=== PATIENT | male | born 1960 | race Hispanic/Latino ===

== ENCOUNTER 2018-07-30 20:38 | Emergency (ER) | payer BC, OTHER ==
[~2018-07-30 20:38] MED LIST: ALLO100T PO; FLUO20TA29 PO; GABA-531 PO; HYDR-3422 PO; LATA2.5D2 OP; MELO-108 PO; TOPI100T37 PO
[2018-07-30] MEDS ORDERED: SULFAMETHOX-TMP DS 800/160 TAB ONE (21:04)
== END 2018-07-30 21:17 | disposition home or self-care (01) ==
LOC: EDH 20:38
DX: L03.114 Cellulitis of left upper limb (principal); F43.10 Post-traumatic stress disorder, unspecified; Z88.0 Allergy status to penicillin

== ENCOUNTER 2018-11-13 03:59 | Emergency (ER) | payer OTHER ==
[2018-11-13] MEDS ORDERED: METOCLOPRAMIDE 10 MG/2 ML VIAL ONE (04:30)
[2018-11-13] MEDS ORDERED: ONDANSETRON HCL 4 MG/2 ML VIAL ONE (04:30)
[2018-11-13] MEDS ORDERED: FAMOTIDINE/PF 20 MG/2 ML VIAL IV ONE (04:30)
[2018-11-13] MEDS ORDERED: SODIUM CHLORIDE 0.9% 1000ML 1,000 ML IV ONE (04:46)
[2018-11-13 04:52] LABS: BASOPHILS % (AUTO) 0.2 % (0.0-5.0); EOSINOPHILS % (AUTO) 1.4 % (0.0-8.0); HEMATOCRIT 45.7 % (42-54); LYMPHOCYTES % (AUTO) 9.9 % (21.0-51.0); MEAN CORPUSCULAR HEMOGLOBIN 31.2 pg (27.0-33.0); MEAN CORPUSCULAR HGB CONC 34.7 g/dL (32.0-36.0); MEAN CORPUSCULAR VOLUME 90.1 fL (79-99); MONOCYTES % (AUTO) 7.2 % (3.0-13.0); NEUTROPHILS % (AUTO) 81.3 % (40.0-77.0); PLATELET COUNT (AUTO) 209 K/uL (130-400); RED BLOOD CELL COUNT(AUTO) 5.07 MIL/uL (4.50-6.20); RED CELL DISTRIBUTION WIDTH 12.9 % (11.0-15.5); WHITE BLOOD COUNT (AUTO) 6.9 K/uL (4.8-10.8)
[2018-11-13 05:03] LABS: CREATININE 1.3 mg/dL (0.5-1.5)
[2018-11-13 05:07] LABS: ALBUMIN 3.9 g/dL (3.5-5.0); BILIRUBIN,TOTAL 1.4 mg/dL (0.2-1.0); TOTAL PROTEIN, SERUM 7.2 g/dL (6.0-8.3)
[2018-11-13 05:24] LABS: APPEARANCE,URINE Clear (CLEAR); BILIRUBIN,URINE Negative (NEGATIVE); COLOR,URINE Yellow (YELLOW); GLUCOSE, URINE (UA) Negative (NEGATIVE); KETONES,URINE Negative (NEGATIVE); LEUKOCYTE ESTERASE ,URINE Negative (NEGATIVE); NITRATE,URINE Negative (NEGATIVE); OCCULT BLOOD,URINE Negative (NEGATIVE); PH,URINE 5.5 (5.0-8.0); PROTEIN,URINE Negative (NEGATIVE)
== END 2018-11-13 06:04 | disposition home or self-care (01) ==
LOC: EDH 03:59
DX: E86.9 Volume depletion, unspecified (principal); R19.7 Diarrhea, unspecified; I10 Essential (primary) hypertension; Z88.0 Allergy status to penicillin; Z98.890 Other specified postprocedural states
CPT/HCPCS: 36415; 80053; 81003; 83690; 85025; 96361; 96374; 96375; 99284; J2405; J2765; J3490; J7030

== ENCOUNTER 2019-04-01 12:30 | Emergency (ER) | payer OTHER ==
[2019-04-01] MEDS ORDERED: KETOROLAC TROMETHAMINE 60 MG/2 ML VIAL ONE (13:53)
[2019-04-01] MEDS ORDERED: DEXAMETHASONE SOD PHOSPHATE 10MG/ML 1ML VIAL ONE (13:53)
[2019-04-01] MEDS ORDERED: DIAZEPAM 5 MG TABLET ONE (13:53)
== END 2019-04-01 14:11 | disposition home or self-care (01) ==
LOC: EDH 12:30
DX: M54.5 Low back pain (principal); G89.29 Other chronic pain; M62.830 Muscle spasm of back; I10 Essential (primary) hypertension; F43.10 Post-traumatic stress disorder, unspecified; Z87.891 Personal history of nicotine dependence; Z88.0 Allergy status to penicillin
CPT/HCPCS: 96372 ×2; 99284; J1100; J1885

== ENCOUNTER 2019-04-29 16:58 | Emergency (ER) | payer OTHER ==
[2019-04-29] MEDS ORDERED: IPRATROPIUM/ALBUTEROL SULFATE 3 ML SOLUTION IH ONE (17:18)
[2019-04-29 17:29] LABS: BASOPHILS % (AUTO) 0.5 % (0.0-5.0); EOSINOPHILS % (AUTO) 2.1 % (0.0-8.0); HEMATOCRIT 44.9 % (42-54); LYMPHOCYTES % (AUTO) 33.7 % (21.0-51.0); MEAN CORPUSCULAR HEMOGLOBIN 31.8 pg (27.0-33.0); MEAN CORPUSCULAR HGB CONC 34.5 g/dL (32.0-36.0); MONOCYTES % (AUTO) 9.2 % (3.0-13.0); NEUTROPHILS % (AUTO) 54.5 % (40.0-77.0); PLATELET COUNT (AUTO) 229 K/uL (130-400); RED BLOOD CELL COUNT(AUTO) 4.88 MIL/uL (4.50-6.20); RED CELL DISTRIBUTION WIDTH 13.2 % (11.0-15.5); WHITE BLOOD COUNT (AUTO) 7.5 K/uL (4.8-10.8)
[2019-04-29 17:41] LABS: CREATININE 1.5 mg/dL (0.5-1.5); POTASSIUM 3.8 mmol/L (3.5-5.1)
[2019-04-29 17:54] LABS: ALBUMIN 3.8 g/dL (3.5-5.0); BILIRUBIN,TOTAL 0.4 mg/dL (0.2-1.0); TOTAL PROTEIN, SERUM 7.3 g/dL (6.0-8.3)
[2019-04-29 17:55] LABS: B-TYPE NATRIURETIC PEPTIDE 18 pg/mL (0-100)
[2019-04-29] MEDS ORDERED: SODIUM CHLORIDE 0.9% 1000ML 1,000 ML IV ONE (18:16)
== END 2019-04-29 19:28 | disposition home or self-care (01) ==
LOC: EDH 16:58
DX: J20.9 Acute bronchitis, unspecified (principal); I10 Essential (primary) hypertension; F43.10 Post-traumatic stress disorder, unspecified; R74.8 Abnormal levels of other serum enzymes; Z88.0 Allergy status to penicillin
CPT/HCPCS: 36415; 71045; 80053; 82550; 83880; 84484; 85025; 93005; 94640; 99285; J7030

== ENCOUNTER 2019-06-25 00:47 | Emergency (ER) | payer OTHER | END 2019-06-25 01:43 | disposition home or self-care (01) | LOC: EDH 00:47 | DX: I10 Essential (primary) hypertension (principal); H93.19 Tinnitus, unspecified ear; G47.30 Sleep apnea, unspecified; F43.10 Post-traumatic stress disorder, unspecified; Z98.890 Other specified postprocedural states; Z88.0 Allergy status to penicillin | CPT/HCPCS: 93005 ==

== ENCOUNTER 2019-07-18 14:41 | Emergency (ER) | payer OTHER | END 2019-07-18 16:31 | disposition home or self-care (01) | LOC: EDH 14:41 | DX: J00 Acute nasopharyngitis [common cold] (principal); I10 Essential (primary) hypertension; Z88.0 Allergy status to penicillin | CPT/HCPCS: 87804; 87880 ==

== ENCOUNTER 2019-10-18 08:01 | Emergency (ER) | payer OTHER ==
[2019-10-18 09:05] LABS: BASOPHILS % (AUTO) 0.3 % (0.0-5.0); EOSINOPHILS % (AUTO) 3.3 % (0.0-8.0); HEMATOCRIT 45.2 % (42-54); LYMPHOCYTES % (AUTO) 32.9 % (21.0-51.0); MEAN CORPUSCULAR HEMOGLOBIN 30.7 pg (27.0-33.0); MEAN CORPUSCULAR VOLUME 87.8 fL (79-99); MONOCYTES % (AUTO) 12.5 % (3.0-13.0); NEUTROPHILS % (AUTO) 50.4 % (40.0-77.0); PLATELET COUNT (AUTO) 220 K/uL (130-400); RED BLOOD CELL COUNT(AUTO) 5.15 MIL/uL (4.50-6.20); RED CELL DISTRIBUTION WIDTH 11.9 % (11.0-15.5); WHITE BLOOD COUNT (AUTO) 7.2 K/uL (4.8-10.8)
[2019-10-18 09:14] LABS: CREATININE 1.3 mg/dL (0.5-1.5); POTASSIUM 4.2 mmol/L (3.5-5.1)
[2019-10-18] MEDS ORDERED: METHYLPREDNISOLONE SOD SUCC 40MG/ML 1ML ONE (09:29)
[2019-10-18] MEDS ORDERED: MORPHINE SULFATE 4 MG/1ML SYG ONE (09:29)
== END 2019-10-18 10:09 | disposition home or self-care (01) ==
LOC: EDH 08:01
DX: M10.9 Gout, unspecified (principal); I10 Essential (primary) hypertension; Z90.49 Acquired absence of other specified parts of digestive tract
CPT/HCPCS: 36415; 80048; 84550; 85025; 96372 ×2; 99284; J2270; J2920

== ENCOUNTER 2020-02-18 | Emergency (ER) | payer OTHER, BC ==
[2020-02-18] MEDS ORDERED: CLONIDINE HCL 0.1 MG TABLET ONE (00:26)
[2020-02-18 00:44] LABS: CREATININE 1.3 mg/dL (0.5-1.5); POTASSIUM 3.4 mmol/L (3.5-5.1)
[2020-02-18 00:47] LABS: BASOPHILS % (AUTO) 0.5 % (0.0-5.0); EOSINOPHILS % (AUTO) 4.5 % (0.0-8.0); HEMATOCRIT 45.3 % (42-54); LYMPHOCYTES % (AUTO) 43.4 % (21.0-51.0); MEAN CORPUSCULAR HEMOGLOBIN 31.1 pg (27.0-33.0); MEAN CORPUSCULAR HGB CONC 35.3 g/dL (32.0-36.0); MONOCYTES % (AUTO) 9.1 % (3.0-13.0); NEUTROPHILS % (AUTO) 42.3 % (40.0-77.0); PLATELET COUNT (AUTO) 228 K/uL (130-400); RED BLOOD CELL COUNT(AUTO) 5.15 MIL/uL (4.50-6.20); RED CELL DISTRIBUTION WIDTH 11.7 % (11.0-15.5)
[2020-02-18 00:51] LABS: ALBUMIN 3.6 g/dL (3.5-5.0); BILIRUBIN,TOTAL 0.4 mg/dL (0.2-1.0); TOTAL PROTEIN, SERUM 7.2 g/dL (6.0-8.3)
== END 2020-02-18 01:49 | disposition home or self-care (01) ==
LOC: EDH
DX: I10 Essential (primary) hypertension (principal); R51 Headache; Z87.891 Personal history of nicotine dependence; Z88.0 Allergy status to penicillin
CPT/HCPCS: 36415; 70450; 80053; 85025

== ENCOUNTER 2021-07-02 21:42 | Emergency (ER) | payer BC, OTHER ==
[~2021-07-02] VITALS: Ht 152.4 cm; Wt 92.5 kg
[~2021-07-02 21:42] MED LIST changes: +LATA2.5D14 OP; -LATA2.5D2 OP
[2021-07-02] MEDS ORDERED: HYDROCODONE/ACETAMINOPHEN 10/325 MG TAB PO ONE (22:00)
[2021-07-02] MEDS ORDERED: CYCLOBENZAPRINE HCL 10 MG TABLET PO ONE (22:00)
[2021-07-02] MEDS ORDERED: ACET-2247 PO (22:39)
[2021-07-02] MEDS ORDERED: IBUP-1552 PO (22:39)
[2021-07-02 23:05] VITALS: BP 159/82
== END 2021-07-02 23:06 | disposition home or self-care (01) ==
LOC: EDH 21:42
DX: S82.831A Other fracture of upper and lower end of right fibula, initial encounter for closed fracture (principal); S23.41XA Sprain of ribs, initial encounter; S63.92XA Sprain of unspecified part of left wrist and hand, initial encounter; E78.5 Hyperlipidemia, unspecified; F43.10 Post-traumatic stress disorder, unspecified; E66.9 Obesity, unspecified; Z79.899 Other long term (current) drug therapy; Z79.1 Long term (current) use of non-steroidal anti-inflammatories (NSAID); Z88.0 Allergy status to penicillin; Z68.39 Body mass index [BMI] 39.0-39.9, adult; W01.0XXA Fall on same level from slipping, tripping and stumbling without subsequent striking against object, initial encounter; X58.XXXA Exposure to other specified factors, initial encounter; Y93.89 Activity, other specified; Y92.89 Other specified places as the place of occurrence of the external cause; Y99.8 Other external cause status
CPT/HCPCS: 29515; 71101; 73120; 73610

== ENCOUNTER 2021-10-20 13:45 | Emergency (ER) | payer BC, OTHER ==
[~2021-10-20] VITALS: Ht 165.1 cm; Wt 86.2 kg
[~2021-10-20 13:45] MED LIST changes: +ACET-2247 PO; +IBUP-1552 PO
[2021-10-20 14:19] LABS: BASOPHILS % (AUTO) 0.3 % (0.0-5.0); EOSINOPHILS % (AUTO) 3.1 % (0.0-8.0); HEMATOCRIT 45.3 % (42-54); MEAN CORPUSCULAR HEMOGLOBIN 31.6 pg (27.0-33.0); MEAN CORPUSCULAR HGB CONC 34.9 g/dL (32.0-36.0); MEAN CORPUSCULAR VOLUME 90.6 fL (79-99); MONOCYTES % (AUTO) 9.1 % (3.0-13.0); NEUTROPHILS % (AUTO) 52.2 % (40.0-77.0); PLATELET COUNT (AUTO) 237 K/uL (130-400); RED CELL DISTRIBUTION WIDTH 12.6 % (11.0-15.5); WHITE BLOOD COUNT (AUTO) 6.7 K/uL (4.8-10.8)
[2021-10-20 14:26] LABS: CREATININE 1.1 mg/dL (0.5-1.5); POTASSIUM 4.2 mmol/L (3.5-5.1)
[2021-10-20 14:28] LABS: INR 1.06 (0.85-1.15); PROTHROMBIN TIME 11.5 SEC (9.6-11.6)
[2021-10-20 14:29] LABS: PARTIAL THROMBOPLASTIN TIME 25.5 SEC (26.3-35.5)
[2021-10-20 15:00] VITALS: BP 146/76
[2021-10-20] MEDS ORDERED: SULF1TAB42 PO (15:10)
== END 2021-10-20 15:20 | disposition home or self-care (01) ==
LOC: EDH 13:45
DX: R22.41 Localized swelling, mass and lump, right lower limb (principal); I10 Essential (primary) hypertension; F43.10 Post-traumatic stress disorder, unspecified; E78.5 Hyperlipidemia, unspecified; Z88.0 Allergy status to penicillin; Z79.899 Other long term (current) drug therapy; Z98.890 Other specified postprocedural states
CPT/HCPCS: 36415; 80048; 85025; 85610; 85730; 93971

== ENCOUNTER 2022-05-25 03:57 | Emergency (ER) | payer OTHER, BC ==
[~2022-05-25] VITALS: Ht 165.1 cm; Wt 92.1 kg
[~2022-05-25 03:57] MED LIST changes: +SULF1TAB42 PO
[2022-05-25] MEDS ORDERED: HYDROCODONE/ACETAMINOPHEN 10/325 MG TAB PO STA (05:15)
[2022-05-25] MEDS ORDERED: KETOROLAC 60 MG VIAL (30MG/ML) IM ONE (05:30)
[2022-05-25 05:49] VITALS: BP 150/76
[2022-05-25] MEDS ORDERED: DICL35CA PO (06:43)
[2022-05-25] MEDS ORDERED: COLC0.6T73 PO (06:43)
== END 2022-05-25 06:54 | disposition home or self-care (01) ==
LOC: EDH 03:57
DX: M10.9 Gout, unspecified (principal); I10 Essential (primary) hypertension; F43.10 Post-traumatic stress disorder, unspecified; E78.5 Hyperlipidemia, unspecified; Z98.890 Other specified postprocedural states; Z88.0 Allergy status to penicillin; Z79.899 Other long term (current) drug therapy
CPT/HCPCS: 99283; 96372; J1885

== ENCOUNTER 2023-05-21 18:56 | Emergency (ER) | payer OTHER, BC ==
[~2023-05-21] VITALS: Ht 165.1 cm; Wt 94.8 kg
[~2023-05-21 18:56] MED LIST changes: +COLC0.6T73 PO; +DICL35CA PO
[2023-05-21 19:59] VITALS: RESP 16
[2023-05-21 21:55] LABS: BASOPHILS # (AUTO) 0.02 K/uL (0.00-0.20); BASOPHILS % (AUTO) 0.3 % (0.0-5.0); EOSINOPHILS # (AUTO) 0.11 K/uL (0.00-0.70); EOSINOPHILS % (AUTO) 1.7 % (0.0-8.0); HEMATOCRIT 45.9 % (42-54); IMMATURE GRANULOCYTE ABSOLUTE 0.02 K/uL (0-1); LYMPHOCYTES # (AUTO) 1.3 K/uL (1.0-4.8); LYMPHOCYTES % (AUTO) 19.8 % (21.0-51.0); MEAN CORPUSCULAR HEMOGLOBIN 31.1 pg (27.0-33.0); MEAN CORPUSCULAR HGB CONC 35.7 g/dL (32.0-36.0); MEAN CORPUSCULAR VOLUME 87.1 fL (79-99); MONOCYTES # (AUTO) 0.7 K/uL (0.1-1.0); MONOCYTES % (AUTO) 11.1 % (3.0-13.0); NEUTROPHILS # (AUTO) 4.2 K/uL (1.8-7.7); NEUTROPHILS % (AUTO) 66.8 % (40.0-77.0); PLATELET COUNT (AUTO) 203 K/uL (130-400); RED BLOOD CELL COUNT(AUTO) 5.27 MIL/uL (4.50-6.20); RED CELL DISTRIBUTION WIDTH 12.1 % (11.0-15.5); WHITE BLOOD COUNT (AUTO) 6.3 K/uL (4.8-10.8)
[2023-05-21] MEDS ORDERED: GUAIFENESIN-DM 200/20 MG 10 ML PO ONE (22:00)
[2023-05-21 22:04] LABS: CREATININE 1.3 mg/dL (0.5-1.5); POTASSIUM 3.9 mmol/L (3.5-5.1)
[2023-05-21 22:08] LABS: ALBUMIN 3.8 g/dL (3.5-5.0); BILIRUBIN,TOTAL 1.1 mg/dL (0.2-1.0); TOTAL PROTEIN, SERUM 7.8 g/dL (6.0-8.3)
[2023-05-21 22:25] LABS: B-TYPE NATRIURETIC PEPTIDE 24 pg/mL (0-100)
[2023-05-21 23:07] LABS: COVID19 (SARS ANTIGEN RAPID) PRESUMPTIVE NEGATIVE (NEGATIVE); INFLUENZA TYPE A Negative For Type A (NEGATIVE); INFLUENZA TYPE B Negative For Type B (NEGATIVE)
[2023-05-21] MEDS ORDERED: AZIT250T9 PO (23:28)
[2023-05-21] MEDS ORDERED: PSEU120T62 PO (23:28)
[2023-05-21] MEDS ORDERED: PHEN118L19 PO (23:28)
[2023-05-21] MEDS ORDERED: ACET-66 PO (23:28)
== END 2023-05-21 23:35 | disposition home or self-care (01) ==
LOC: EDH 18:56
DX: J01.90 Acute sinusitis, unspecified (principal); J20.9 Acute bronchitis, unspecified; I10 Essential (primary) hypertension; E11.9 Type 2 diabetes mellitus without complications; Z88.0 Allergy status to penicillin; Z20.822 Contact with and (suspected) exposure to COVID-19
CPT/HCPCS: 36415; 71045; 80053; 83880; 84484; 85025; 87426; 87804; 87880; 93005

== ENCOUNTER 2023-07-13 03:39 | Emergency (ER) | payer OTHER ==
[~2023-07-13] VITALS: Ht 160 cm; Wt 90.7 kg
[~2023-07-13 03:39] MED LIST changes: +ACET-66 PO; +AZIT250T9 PO; +PHEN118L19 PO; +PSEU120T62 PO
[2023-07-13 03:40] VITALS: BP 157/87; PULSE 82; RESP 18
== END 2023-07-13 03:46 | disposition left against medical advice (07) ==
LOC: EDH 03:39
DX: R03.0 Elevated blood-pressure reading, without diagnosis of hypertension (principal); Z53.21 Procedure and treatment not carried out due to patient leaving prior to being seen by health care provider
CPT/HCPCS: 99281

== ENCOUNTER 2023-11-21 08:10 | Emergency (ER) | payer OTHER, BC ==
[~2023-11-21] VITALS: Ht 165.1 cm; Wt 81.6 kg
[2023-11-21 08:40] VITALS: RESP 18
[2023-11-21 08:56] LABS: BASOPHILS # (AUTO) 0.02 K/uL (0.00-0.20); BASOPHILS % (AUTO) 0.2 % (0.0-5.0); EOSINOPHILS # (AUTO) 0.11 K/uL (0.00-0.70); EOSINOPHILS % (AUTO) 1.2 % (0.0-8.0); HEMATOCRIT 49.2 % (42-54); IMMATURE GRANULOCYTE ABSOLUTE 0.02 K/uL (0-1); LYMPHOCYTES # (AUTO) 2.2 K/uL (1.0-4.8); LYMPHOCYTES % (AUTO) 24.7 % (21.0-51.0); MEAN CORPUSCULAR HEMOGLOBIN 30.8 pg (27.0-33.0); MEAN CORPUSCULAR VOLUME 88.2 fL (79-99); MONOCYTES # (AUTO) 0.6 K/uL (0.1-1.0); MONOCYTES % (AUTO) 6.9 % (3.0-13.0); NEUTROPHILS % (AUTO) 66.8 % (40.0-77.0); PLATELET COUNT (AUTO) 268 K/uL (130-400); RED BLOOD CELL COUNT(AUTO) 5.58 MIL/uL (4.50-6.20); RED CELL DISTRIBUTION WIDTH 12.5 % (11.0-15.5)
[2023-11-21 09:06] LABS: CREATININE 1.3 mg/dL (0.5-1.3); POTASSIUM 4.2 mmol/L (3.5-5.1)
[2023-11-21 09:11] LABS: ALBUMIN 4.1 g/dL (3.5-5.0); BILIRUBIN,TOTAL 0.7 mg/dL (0.2-1.0); TOTAL PROTEIN, SERUM 7.9 g/dL (6.0-8.3)
[2023-11-21] MEDS: 0.9%NACL 1000ML 1,000 ML IV ONE (10:18)
[2023-11-21 11:01] VITALS: BP 123/65; PULSE 54
[2023-11-21] MEDS ORDERED: [UNRECOGNIZED DRUG - CODE] PO (12:48)
[2023-11-23 07:17] LABS: C DIFFICILE TOXIN A/B Not Detected (Not Detected); ENTEROAGGREGATIVE ECOLI Not Detected (Not Detected); GIARDIA LAMBLIA Not Detected (Not Detected); PLESIOMONAS SHIGELOIDES Not Detected (Not Detected); SAPOVIRUS Not Detected (Not Detected); SHIGELLA/ENTEROINVASIVE E COLI Not Detected (Not Detected); VIBRIO Not Detected (Not Detected); VIBRIO CHOLERAE Not Detected (Not Detected)
== END 2023-11-21 12:58 | disposition home or self-care (01) ==
LOC: EDH 08:10
DX: R19.7 Diarrhea, unspecified (principal); E86.0 Dehydration; I10 Essential (primary) hypertension; Z88.0 Allergy status to penicillin; Z98.890 Other specified postprocedural states
CPT/HCPCS: 99284; 96360; 82270; 80053; 83690; 85025; 87046; 87177; 36415; 74018; 87507; 83630; 87324; J7030

== ENCOUNTER 2024-11-15 04:24 | Emergency (ER) | payer OTHER ==
[~2024-11-15] VITALS: Ht 165.1 cm; Wt 86.2 kg
[~2024-11-15 04:24] MED LIST changes: +TOPI-258 PO; -TOPI100T37 PO; +[UNRECOGNIZED DRUG - CODE] PO
[2024-11-15] MEDS: LACTATED RINGERS 1000ML 1,000 ML IV ONE (04:49)
[2024-11-15] MEDS: acetaMINOPHEN 325 MG TAB PO ONE (04:49)
--- NOTE | 2024-11-15 05:03 | ERN ---
General Chief Complaint: Diarrhea Stated Complaint: DIARRHEA Time Seen by MD: 05:00 Source: patient History of Present Illness Initial Comments 64-year-old male past medical history hypertension has had unrelenting diarrhea for the last 36 hours. No fevers or chills no nausea or vomiting no abdominal pain. Patient states he had a similar episode several months ago and stool c ulture was performed but he can not remember the results. Allergies: Coded Allergies: Penicillins (Unverified Allergy, Intermediate, HIVES, 03/30/17) Home Meds Active Scripts Psyllium Husk (with Sugar) (Metamucil Powder) 3 Gram/7 Gram Powder, 3.4 GM PO TID PRN for DIARRHEA, #30 APPL 0 Refills Prov:FIONA MARCUS MD 11/21/23 Phenylephrine/Diphenhydramine (Dimetapp Cold & Congest Liquid) 2.5 Mg-6.25 Mg/5 Ml Liquid, 10 ML PO TID for 5 Days, #120 ML Prov:YAAKOV STYLES 05/21/23 Azithromycin (Azithromycin) 250 Mg Tablet, 250 MG PO DAILY for ZPACK for 5 Days, #6 TAB Prov:YAAKOV STYLES 05/21/23 Pseudoephedrine HCl (Sudafed 12 Hour) 120 Mg Tablet.er, 120 MG PO BID for 5 Days, #10 TAB Prov:YAAKOV STYLES 05/21/23 Acetaminophen (Acetaminophen) 500 Mg Tablet, 500 MG PO Q4PRN for 5 Days, #15 TAB Prov:YAAKOV STYLES 05/21/23 Diclofenac Submicronized (Zorvolex) 35 Mg Capsule, 35 MG PO TID for 10 Days, #30 CAP Prov:IRAIDA SORIA MD 05/25/22 Colchicine (Colchicine) 0.6 Mg Tablet, 0.6 MG PO BID, #15 TAB Prov:IRAIDA SORIA MD 05/25/22 Sulfamethoxazole/Trimethoprim (Bactrim Ds Tablet) 1 Each Tablet, 1 TAB PO BID for 7 Days, #14 TAB 0 Refills Prov:ARDEN CARPENTER MD 10/20/21 Acetaminophen (Tylenol) 325 Mg Tablet, 650 MG PO Q4HPRN, #50 TAB Prov:SULTANA GLOVER 07/02/21 Ibuprofen (Ibu) 400 Mg Tablet, 800 MG PO TIDAC, #60 TAB Prov:GLOVERMIMI JimenezLupe ROY 07/02/21 Reported Medications Fluoxetine HCl (Fluoxetine HCl) 20 Mg Tablet, 20 MG PO UNKNOWN, TAB 03/30/17 Gabapentin (Gabapentin) 300 Mg Capsule, 300 MG PO UNKNOWN, CAP 03/30/17 Hydroxyzine HCl (Hydroxyzine HCl) 50 Mg Tablet, 50 MG PO UNKNOWN, TAB 03/30/17 Meloxicam (Meloxicam) 15 Mg Tablet, 15 MG PO UNKNOWN, TAB 03/30/17 Topiramate (Topiramate) 100 Mg Tablet, 100 MG PO UNKNOWN, TAB 03/30/17 Latanoprost (Latanoprost) 2.5 Ml Drops, 2.5 ML OP UNKNOWN, DROP 03/30/17 Allopurinol (Allopurinol) 100 Mg Tablet, 100 MG PO UNKNOWN, TAB 03/30/17 Past Medical History Past Medical History: Hypertension Medical History Other: PTSD; SLEEP APNEA Past Surgical History: Other Surgical History Other: HERNIA REPAIR Social History Social History: Other Constitutional: (-) chills, (-) diaphoresis, (-) fever, (-) malaise, (-) weakness, (-) other documentation EENTM: (-) eye pain, (-) blurred vision, (-) tearing, (-) double vision, (-) ear pain, (-) ear discharge, (-) nose pain, (-) nose congestion, (-) throat pain, (-) Throat swelling, (-) mouth pain, (-) tooth pain, (-) mouth swelling, (-) other documentation Respiratory: (-) cough, (-) orthopnea, (-) short of breath, (-) stridor, (-) wheezing, (-) other documentation Cardiovascular: (-) chest pain, (-) edema, (-) palpitations, (-) syncope, (-) dyspnea on exertion, (-) other documentation Gastrointestinal/Abdominal: (+) diarrhea Musculoskeletal: (-) Neck pain, (-) back pain, (-) Flank Pain, (-) joint pain, (-) joint swelling, (-) muscle pain, (-) muscle stiffness, (-) gout, (-) other documentation Neuro: (-) altered mental status, (-) headache, (-) syncope, (-) paralysis, (-) numbness, (-) seizure, (-) pre-existing deficit, (-) tremors, (-) weakness, (-) dizziness, (-) slurred speech, (-) vertigo, (-) other documentation Physical Exam General Appearance: (+) no apparent distress Orientation: (+) alert, (+) oriented x 3 Head/Face Trauma: No Eye: bilateral eye normal inspection, bilateral eye PERRL, bilateral eye EOMI Ear, Nose, Throat: (+) hearing grossly normal, (+) normal ENT inspection, (+) moist mucous membraine Neck: (+) normal inspection, (+) supple, (+) full range of motion Respiratory: (+) chest non-tender, (+) lungs clear, (+) well ventilated Heart: (+) regular, (+) no gallop, (+) murmur Vascular: (+) no edema, (+) normal peripheral pulse, (+) no JVD Gastrointestinal: (+) soft, (+) non-tender, (+) no organomegaly, (+) bowel sound present Results Laboratory and Microbiology Lab and Micro Result Laboratory Tests Test 11/15/24 05:00 11/15/24 06:36 White Blood Count 5.1 K/uL (4.8-10.8) Red Blood Count 4.99 MIL/uL (4.50-6.20) Hemoglobin 15.3 g/dL (14.0-18.0) Hematocrit 44.4 % (42-54) Mean Corpuscular Volume 89.0 fL (79-99) Mean Corpuscular Hemoglobin 30.7 pg (27.0-33.0) Mean Corpuscular Hemoglobin Concent 34.5 g/dL (32.0-36.0) Red Cell Distribution Width 12.4 % (11.0-15.5) Platelet Count 184 K/uL (130-400) Mean Platelet Volume 9.6 fL (7.5-10.5) Immature Granulocyte % (Auto) 0.6 % (0-1) Neutrophils (%) (Auto) 64.4 % (40.0-77.0) Lymphocytes (%) (Auto) 17.0 % (21.0-51.0) L Monocytes (%) (Auto) 14.8 % (3.0-13.0) H Eosinophils (%) (Auto) 2.8 % (0.0-8.0) Basophils (%) (Auto) 0.4 % (0.0-5.0) Neutrophils # (Auto) 3.3 K/uL (1.8-7.7) Lymphocytes # (Auto) 0.9 K/uL (1.0-4.8) L Monocytes # (Auto) 0.8 K/uL (0.1-1.0) Eosinophils # (Auto) 0.14 K/uL (0.00-0.70) Basophils # (Auto) 0.02 K/uL (0.00-0.20) Absolute Immature Granulocyte (auto 0.03 K/uL (0-1) Nucleated Red Blood Cells 0.0 % (0.0-0.19) Urine Color YELLOW (YELLOW) Urine Appearance CLEAR (CLEAR) Urine pH 5.5 (5.0-8.0) Urine Specific [place] 1.025 (1.001-1.031) Urine Protein 20 mg/dL (NEGATIVE) H Urine Glucose (UA) NEGATIVE mg/dL (NEGATIVE) Urine Ketones NEGATIVE mg/dL (NEGATIVE) Urine Occult Blood NEGATIVE (NEGATIVE) Urine Nitrate NEGATIVE (NEGATIVE) Urine Bilirubin NEGATIVE mg/dL (NEGATIVE) Urine Urobilinogen 0.2 mg/dL (0.2-1.0) Urine Leukocyte Esterase NEGATIVE [place]/uL Urine RBC 0-1 /HPF (0-1) Urine WBC 0-1 /HPF (0-1) Urine Bacteria None /HPF (None Seen) Sodium Level 133 mmol/L (136-145) L Potassium Level 3.7 mmol/L (3.5-5.1) Chloride Level 103 mmol/L (101-111) Carbon Dioxide Level 22 mmol/L (21-32) Blood Urea Nitrogen 21 mg/dL (7-18) H Creatinine 1.3 mg/dL (0.5-1.3) Glomerular Filtration Rate Calc 62 mL/min (>90) Random Glucose 98 mg/dL (70-105) Total Calcium 8.4 mg/dL (8.5-10.1) L Total Bilirubin 0.7 mg/dL (0.2-1.0) Direct Bilirubin 0.2 mg/dL (0.0-0.3) Aspartate Amino Transf (AST/SGOT) 50 U/L (10-37) H Alanine Aminotransferase (ALT/SGPT) 57 U/L (12-78) Alkaline Phosphatase 75 U/L (50-136) Total Protein 7.1 g/dL (6.0-8.3) Albumin 3.5 g/dL (3.5-5.0) C. difficile Antigen and Toxins A,B See comments (NEG) Labs Reviewed?: Yes MDM Unremitting diarrhea. Unclear if it is of food allergy or food poisoning or gastroenteritis. We will start to give the patient some fluid draw the usual labs to be sure there was no electrolyte abnormalities. MDM: DIFFERENTIAL DIAGNOSIS: DIARRHEA, GASTROENTERITIS, RATIONALE: TESTS CONSIDERED AND ORDERED SECONDARY TO SHARED DECISION MAKING INCLUDE: PREVIOUS OUTSIDE RECORDS REVIEWED: OLD ER VISITS. RISK OF COMPLICATION AND/OR MORBIDITY OR MORTALITY OF PATIENT MANAGEMENT: NONE MEDICATIONS-PER MEDICATION RECONCILIATION PATIENT IS A 64-YEAR-OLD MALE COMING IN TO BE EVALUATED FOR DIARRHEA. PATIENT WAS HAS HAD DIARRHEA FOR A COUPLE OF DAYS. PATIENT DOES NOT KNOW WHAT CAUSED IT AND STATES HE WAS HE WAS EVALUATION LABORATORY WORKUP WITH A NORMAL LIMITS UPON EVALUATION PATIENT WAS ASLEEP AND STRETCHER DISTRESS VITAL SIGNS WITH A NORMAL LIMITS. PATIENT WILL BE DISCHARGED IN STABLE CONDITION WITH A DIAGNOSIS OF VIRAL GASTROENTERITIS. SYMPTOMATIC MEDICATION WILL BE PROVIDED. ED Course Orders Procedure Category Date Status Time Vital Signs Per CPOE 11/15/24 Transmitted Routine 04:39 Saline Lock Iv CPOE 11/15/24 Transmitted 04:39 Cbc With Differential LAB 11/15/24 Complete 04:39 Urinalysis Profile LAB 11/15/24 Complete 04:39 Basic Metabolic Panel LAB 11/15/24 Complete 04:39 Lactated Ringers PHA 11/15/24 Complete 1000ml (Lactated 05:00 Acetaminophen 325 Tab PHA 11/15/24 Complete (Tylenol 325mg Tab 05:00 Hepatic Function Panel LAB 11/15/24 Complete 05:07 Dicyclomine Hcl PHA 11/15/24 Complete (Bentyl 10mg/5ml 05:30 Ova And Parasite BRITTANIE 11/15/24 In Process 06:22 C Difficile A/B LAB 11/15/24 Complete 06:22 Stool Culture BRITTANIE 11/15/24 In Process 06:22 Current Medications Medications (Trade) Dose Ordered Sig/Bijal Route PRN Reason Start Time Stop Time Status Last Admin Dose Admin Acetaminophen (TYLenol 325MG TAB) 650 mg ONCE ONCE PO 11/15/24 05:00 11/15/24 05:01 DC 11/15/24 04:49 Dicyclomine HCl (Bentyl 10mg/5ml Syrup) 10 mg ONCE ONCE PO 11/15/24 05:30 11/15/24 05:31 DC 11/15/24 06:09 Lactated Ringer's 1,000 ml @ 0 mls/hr Q0M ONCE IV 11/15/24 05:00 11/15/24 05:01 DC 11/15/24 04:49 Vital Signs Date Time Temp Pulse Resp B/P (MAP) Pulse Ox O2 Delivery O2 Flow Rate FiO2 11/15/24 07:30 99.1 72 18 112/60 96 Room Air* 0 21 11/15/24 06:15 100.0 80 18 127/74 96 Room Air* 0 21 11/15/24 05:46 72 18 141/84 96 Room Air* 0 21 11/15/24 05:11 100.4 81 18 141/84 96 Room Air* 0 21 11/15/24 04:49 100.8 11/15/24 04:25 100.6 98 20 169/92 97 Room Air DX & DISP Disposition: Discharge Departure Impression: Primary Impression: Dehydration Additional Impression: Viral gastroenteritis Condition: Stable Scripts Lactobacillus Acidophilus (Acidophilus Probiotic) 500 Million Cell Capsule 1 CAP PO BID for 10 Days, #20 CAP 0 Refills Prov: JEANNA ROWLAND MD 11/15/24 Pantoprazole Sodium (Protonix) 40 Mg Ectab 1 TAB PO DAILY for 30 Days, #30 TAB 0 Refills Prov: JEANNA ROWLAND MD 11/15/24 Additional Instructions: FOLLOW-UP WITH PRIMARY CARE PROVIDER IN 1 TO 2 DAYS. TAKE MEDICATIONS DIRECTED HERE IN THE EMERGENCY ROOM. OKAY TO CONTINUE HOME MEDICATIONS UNLESS OTHERWISE DISCUSSED DURING YOUR VISIT IN THE EMERGENCY ROOM TODAY. RETURN TO YOUR NEAREST EMERGENCY ROOM IF SYMPTOMS WORSEN OR IF THERE IS NO IMPROVEMENT. CALL 911 IF YOU NEED IMMEDIATE ASSISTANCE. TAKE TYLENOL [id number] NEEDED AND IF NO CONTRAINDICATIONS ARE PRESENT. INCREASE ORAL HYDRATION. A WOUND CULTURE OR URINE CULTURE WAS ORDERED HERE IN THE EMERGENCY ROOM DEPARTMENT PLEASE FOLLOW-UP WITH PRIMARY CARE PROVIDER AND ADVISE THEM TO GET REPEAT PORTS FROM OUR FACILITY. IF YOU HAD ANY JADON WRAP/SPLINTS THAT WERE APPLIED HERE, PLEASE DO NOT REMOVE THEM UNTIL YOU SEE YOUR PRIMARY CARE OR SPECIALTY. REFERRALS: Referrals: DEE MARQUEZ MD (PCP) Time of Disposition: 08:15 DELMA DAY MD November 15, 2024 05:03 JEANNA ROWLAND MD November 15, 2024 08:16
[2024-11-15 05:09] LABS: BASOPHILS # (AUTO) 0.02 K/uL (0.00-0.20); BASOPHILS % (AUTO) 0.4 % (0.0-5.0); EOSINOPHILS # (AUTO) 0.14 K/uL (0.00-0.70); EOSINOPHILS % (AUTO) 2.8 % (0.0-8.0); HEMATOCRIT 44.4 % (42-54); IMMATURE GRANULOCYTE ABSOLUTE 0.03 K/uL (0-1); LYMPHOCYTES # (AUTO) 0.9 K/uL (1.0-4.8); MEAN CORPUSCULAR HEMOGLOBIN 30.7 pg (27.0-33.0); MEAN CORPUSCULAR HGB CONC 34.5 g/dL (32.0-36.0); MONOCYTES # (AUTO) 0.8 K/uL (0.1-1.0); MONOCYTES % (AUTO) 14.8 % (3.0-13.0); NEUTROPHILS # (AUTO) 3.3 K/uL (1.8-7.7); NEUTROPHILS % (AUTO) 64.4 % (40.0-77.0); PLATELET COUNT (AUTO) 184 K/uL (130-400); RED BLOOD CELL COUNT(AUTO) 4.99 MIL/uL (4.50-6.20); RED CELL DISTRIBUTION WIDTH 12.4 % (11.0-15.5); WHITE BLOOD COUNT (AUTO) 5.1 K/uL (4.8-10.8)
[2024-11-15 05:17] LABS: APPEARANCE,URINE CLEAR (CLEAR); BILIRUBIN,URINE NEGATIVE (NEGATIVE); COLOR,URINE YELLOW (YELLOW); GLUCOSE, URINE (UA) NEGATIVE (NEGATIVE); KETONES,URINE NEGATIVE (NEGATIVE); LEUKOCYTE ESTERASE ,URINE NEGATIVE Leu/uL (NEGATIVE); NITRATE,URINE NEGATIVE (NEGATIVE); OCCULT BLOOD,URINE NEGATIVE (NEGATIVE); PH,URINE 5.5 (5.0-8.0); PROTEIN,URINE 20 mg/dL (NEGATIVE); UROBILINOGEN,URINE 0.2 mg/dL (0.2-1.0)
[2024-11-15 05:20] LABS: ADD UA MICROSCOPIC YES; CREATININE 1.3 mg/dL (0.5-1.3); POTASSIUM 3.7 mmol/L (3.5-5.1)
[2024-11-15 05:21] LABS: MUCUS,URINE RARE LPF (None Seen); RBC,URINE 0-1 /HPF (0-1); WBC,URINE 0-1 /HPF (0-1)
[2024-11-15 05:48] LABS: ALBUMIN 3.5 g/dL (3.5-5.0); BILIRUBIN,DIRECT 0.2 mg/dL (0.0-0.3); BILIRUBIN,TOTAL 0.7 mg/dL (0.2-1.0); TOTAL PROTEIN, SERUM 7.1 g/dL (6.0-8.3)
[2024-11-15] MEDS: DICYCLOMINE HCL 10 MG/5 ML ML PO ONE (06:09)
[2024-11-15 06:16] VITALS: TEMP 100.2
--- NOTE | 2024-11-15 06:41 | NUR ---
STOOL SAMPLE SENT TO LAB.
[2024-11-15] MEDS ORDERED: LACT-356 PO (08:16)
[2024-11-15] MEDS ORDERED: PANT40TA55 PO (08:16)
[2024-11-15 09:10] VITALS: BP 126/87; PULSE 61; RESP 18; TEMP 99.1; O2SAT 97
== END 2024-11-15 09:12 | disposition home or self-care (01) ==
LOC: EDH 04:24
DX: A08.4 Viral intestinal infection, unspecified (principal); E86.0 Dehydration; F43.10 Post-traumatic stress disorder, unspecified; I10 Essential (primary) hypertension; Z79.899 Other long term (current) drug therapy; Z88.0 Allergy status to penicillin; Z98.890 Other specified postprocedural states; Z20.822 Contact with and (suspected) exposure to COVID-19
CPT/HCPCS: 99285; 96360; 80076; 80048; 85025; 87046; 87177; 87324; 81001; 36415; J7120

== ENCOUNTER 2025-06-09 05:03 | Emergency (ER) | payer OTHER, MEDICARE ==
[~2025-06-09] VITALS: Ht 165.1 cm; Wt 92.5 kg
[~2025-06-09 05:03] MED LIST changes: -COLC0.6T73 PO; +COLC0.6T79 PO; +LACT-356 PO; -LATA2.5D14 OP; +LATA2.5D7 OP; +PANT40TA55 PO
--- NOTE | 2025-06-09 05:22 | ERN ---
ED Note History of Present Illness Stated Complaint: C/O PAIN TO RIGHT KNEE Chief Complaint: Knee Injury/Swelling Time Seen by MD: 05:07 Dictation: This is a 65-year-old male presented to the emergency room with complaints of right knee pain and swelling which has been going on for many years. Apparently he was evaluated at the [facility] and told he might have gout. He denies any fever chills or rigors. No history of any injury. He is able to ambulate nonetheless with a pain Temperature 96.7 pulse 63 respirations 20 blood pressure 135/77 with a pulse oximetry of 99% on room air Patient has chronic medical problems include diabetes mellitus, hypertension, obstructive sleep apnea syndrome and PTSD Allergies: Coded Allergies: Penicillins (Unverified Allergy, Intermediate, HIVES, 03/30/17) Home Meds Active Scripts Colchicine (Colchicine) 0.6 Mg Capsule, 1 CAP PO BID for 30 Days, #60 CAP 0 Refills Prov:ÁLVARO POLANCO MD 06/09/25 Lactobacillus Acidophilus (Acidophilus Probiotic) 500 Million Cell Capsule, 1 CAP PO BID for 10 Days, #20 CAP 0 Refills Prov:JEANNA ROWLAND MD 11/15/24 Pantoprazole Sodium (Protonix) 40 Mg Ectab, 1 TAB PO DAILY for 30 Days, #30 TAB 0 Refills Prov:JEANNA ROWLAND MD 11/15/24 Psyllium Husk (with Sugar) (Metamucil Powder) 3 Gram/7 Gram Powder, 3.4 GM PO TID PRN for DIARRHEA, #30 APPL 0 Refills Prov:FIONA MARCUS MD 11/21/23 Phenylephrine/Diphenhydramine (Dimetapp Cold & Congest Liquid) 2.5 Mg-6.25 Mg/5 Ml Liquid, 10 ML PO TID for 5 Days, #120 ML Prov:YAAKOV STYLES 05/21/23 Azithromycin (Azithromycin) 250 Mg Tablet, 250 MG PO DAILY for ZPACK for 5 Days, #6 TAB Prov:YAAKOV STYLES 05/21/23 Pseudoephedrine HCl (Sudafed 12 Hour) 120 Mg Tablet.er, 120 MG PO BID for 5 Days, #10 TAB Prov:YAAKOV STYLES 05/21/23 Acetaminophen (Acetaminophen) 500 Mg Tablet, 500 MG PO Q4PRN for 5 Days, #15 TAB Prov:YAAKOV STYLES 05/21/23 Diclofenac Submicronized (Zorvolex) 35 Mg Capsule, 35 MG PO TID for 10 Days, #30 CAP Prov:IRAIDA SORIA MD 05/25/22 Colchicine (Colchicine) 0.6 Mg Tablet, 0.6 MG PO BID, #15 TAB Prov:IRAIDA SORIA MD 05/25/22 Sulfamethoxazole/Trimethoprim (Bactrim Ds Tablet) 1 Each Tablet, 1 TAB PO BID for 7 Days, #14 TAB 0 Refills Prov:ARDEN CARPENTER MD 10/20/21 Acetaminophen (Tylenol) 325 Mg Tablet, 650 MG PO Q4HPRN, #50 TAB Prov:SULTANA GLOVER 07/02/21 Ibuprofen (Ibu) 400 Mg Tablet, 800 MG PO TIDAC, #60 TAB Prov:SULTANA GLOVER 07/02/21 Reported Medications Fluoxetine HCl (Fluoxetine HCl) 20 Mg Tablet, 20 MG PO UNKNOWN, TAB 03/30/17 Gabapentin (Gabapentin) 300 Mg Capsule, 300 MG PO UNKNOWN, CAP 03/30/17 Hydroxyzine HCl (Hydroxyzine HCl) 50 Mg Tablet, 50 MG PO UNKNOWN, TAB 03/30/17 Meloxicam (Meloxicam) 15 Mg Tablet, 15 MG PO UNKNOWN, TAB 03/30/17 Topiramate (Topiramate) 100 Mg Tablet, 100 MG PO UNKNOWN, TAB 03/30/17 Latanoprost (Latanoprost) 2.5 Ml Drops, 2.5 ML OP UNKNOWN, DROP 03/30/17 Allopurinol (Allopurinol) 100 Mg Tablet, 100 MG PO UNKNOWN, TAB 03/30/17 Past Medical History Past Medical History: Diabetes-Type II, Hypertension, Other Additional Past Medical Hx: SLEEP APNEA, PTSD Surgical History: None Surgical History Other: HERNIA REPAIR Family History: Negative Social History: Other RN Note Reviewed/Agreed w/PFSH: Yes Review of System Dictation Constitutional: Negative for fever,chills, and weight loss Eyes: Negative for injury, pain,redness, and discharge ENT: Negative for injury,pain or swelling Cardiovascular: Negative for chest pain, palpitations, and edema Respiratory: Negative for shortness of breath, cough, and wheezing, Abdomen/GI: Negative for abdominal pain, nausea, vomiting, diarrhea, and constipation Back: Negative for injury and pain : Negative for injury, bleeding and discharge MS/Extremity: Negative for injury and deformity positive for right knee pain and swelling Skin: Negative for rash, and discoloration Neuro: Negative for headache, weakness, numbness, tingling, and seizure Psych: Negative for suicide ideation, homicidal ideation, and hallucinations Initial Vital Sign VS Vital Signs Date Time Temp Pulse Resp B/P (MAP) Pulse Ox O2 Delivery O2 Flow Rate FiO2 06/09/25 05:06 96.6 63 20 135/77 99 Room Air 06/09/25 05:30 0 21 Physical Exam Dictation General: awake, alert, NAD Head/Face: Normocephalic, atraumatic Eyes: PERRL, EOMI, vision at baseline ENT: oral cavity clear, TMs clear, no signs of infection Neck: Trachea midline, supple, no nuchal rigidity Cardiovascular: RRR, normal S1/S2, No MRGs, no JVD Respiratory: CTAB, no respiratory distress, No rales or wheezes Abdomen: Soft, non-tender, non-distended, normal bowel sounds, no guarding or rebound. Skin: Warm, dry, normal turgor, no rash MS/Extremity: Pulses equal, no cyanosis, neurovascular intact, FROM right knee mildly swollen has area of erythema near the patella and tender to palpation. Patella is freely mobile. No open wounds or fluctuance noted. Neuro: COAx4, GCS 15, strength 5/5, CN 2-12 intact, normal cerebellar exam, normal gait, Psych: Normal behavior, mood, and affect normal Extremities-trace edema without any palpable cords, Homans sign is negative Results (Laboratory/Radiology) Laboratory/Radiology Laboratory Tests Test 06/09/25 05:44 White Blood Count 6.7 K/uL (4.8-10.8) Red Blood Count 4.96 MIL/uL (4.50-6.20) Hemoglobin 15.3 g/dL (14.0-18.0) Hematocrit 45.1 % (42-54) Mean Corpuscular Volume 90.9 fL (79-99) Mean Corpuscular Hemoglobin 30.8 pg (27.0-33.0) Mean Corpuscular Hemoglobin Concent 33.9 g/dL (32.0-36.0) Red Cell Distribution Width 13.0 % (11.0-15.5) Platelet Count 213 K/uL (130-400) Mean Platelet Volume 9.9 fL (7.5-10.5) Immature Granulocyte % (Auto) 0.3 % (0-1) Neutrophils (%) (Auto) 50.0 % (40.0-77.0) Lymphocytes (%) (Auto) 33.7 % (21.0-51.0) Monocytes (%) (Auto) 11.5 % (3.0-13.0) Eosinophils (%) (Auto) 4.2 % (0.0-8.0) Basophils (%) (Auto) 0.3 % (0.0-5.0) Neutrophils # (Auto) 3.4 K/uL (1.8-7.7) Lymphocytes # (Auto) 2.3 K/uL (1.0-4.8) Monocytes # (Auto) 0.8 K/uL (0.1-1.0) Eosinophils # (Auto) 0.28 K/uL (0.00-0.70) Basophils # (Auto) 0.02 K/uL (0.00-0.20) Absolute Immature Granulocyte (auto 0.02 K/uL (0-1) Nucleated Red Blood Cells 0.0 % (0.0-0.19) Sodium Level 138 mmol/L (136-145) Potassium Level 4.1 mmol/L (3.5-5.1) Chloride Level 103 mmol/L (101-111) Carbon Dioxide Level 30 mmol/L (21-32) Blood Urea Nitrogen 18 mg/dL (7-18) Creatinine 1.2 mg/dL (0.5-1.3) Glomerular Filtration Rate Calc 68 mL/min (>90) Random Glucose 108 mg/dL (70-105) H Uric Acid 5.7 mg/dL (2.6-7.2) Total Calcium 9.0 mg/dL (8.5-10.1) Labs Reviewed?: Yes ED Course ED Course Orders Procedure Category Date Status Time Cbc With Differential LAB 06/09/25 Complete 05:19 Basic Metabolic Panel LAB 06/09/25 Complete 05:19 Uric Acid LAB 06/09/25 Complete 05:19 Knee 3vws Rt RAD 06/09/25 Resulted 05:19 Ketorolac PHA 06/09/25 Complete Tromethamine 30mg/Ml 07:00 Knee Immobilizer GENE 06/09/25 Complete 07:45 Current Medications Medications (Trade) Dose Ordered Sig/Bijal Route PRN Reason Start Time Stop Time Status Last Admin Dose Admin Ketorolac Tromethamine (toRADol) 30 mg ONCE ONCE IM 06/09/25 07:00 06/09/25 07:01 DC 06/09/25 06:47 Vital Signs Date Time Temp Pulse Resp B/P (MAP) Pulse Ox O2 Delivery O2 Flow Rate FiO2 06/09/25 06:53 96.6 54 18 108/74 97 Room Air* 0 21 06/09/25 05:30 96.6 60 18 132/64 98 Room Air* 0 21 06/09/25 05:06 96.6 63 20 135/77 99 Room Air Medical Decision Making MDM Differential diagnosis: Osteoarthritis, inflammatory arthritis, septic arthritis, gout, pseudogout This is a 65-year-old male presented to the emergency room with complaints of right knee pain and swelling which has been going on for many years. Apparently he was evaluated at the [facility] and told he might have gout. He denies any fever chills or rigors. No history of any injury. He is able to ambulate nonetheless with a pain Temperature 96.7 pulse 63 respirations 20 blood pressure 135/77 with a pulse oximetry of 99% on room air Patient has chronic medical problems include diabetes mellitus, hypertension, obstructive sleep apnea syndrome and PTSD 6:15 a.m. Labs reviewed-goblet she he has been [facility] Bless you goblet seen CBC is with a normal limits. BNP 7 is normal except for the creatinine of 1.2. Uric acid is 5.7. Right knee x-ray-no acute fractures or dislocations noted radiology interpretation is still pending. 7:00 a.m. care transition to a.m. physician Rationale: Tests considered and ordered secondary to shared decision making include: Previous outside records reviewed: Old ER visits. Risk of complication and/or morbidity or mortality of patient management: None Medications-Per medication reconciliation Need for hospitalization: Patient does not meet criteria for hospitalization. Need for emergency major/minor surgery: No There are no social concerns with this patient. Prescription drug management Prescriptions will include symptomatic care Patient's prior external medical records from other ER visits were reviewed by me as indicated. Prior testing and results from previous visits were reviewed. Prior tests were taken into account with medical decision making and resource utilization, independent historian/historians were used to obtain complete medical history. I independently interpreted the test that were performed, results were reviewed by me and considered findings on radiology if ordered. Medical management and examination interpretation discussions were had by me with other qualified healthcare professionals as indicated for the patient's care. Problem List Problem List: (1) Acute gout of right knee (2) Diabetes mellitus (3) Hypertension (4) Obstructive sleep apnea syndrome in adult DX & DISP Disposition: Discharge Departure Impression: Primary Impression: Acute gout of right knee Additional Impressions: Diabetes mellitus, Hypertension, Obstructive sleep apnea syndrome in adult Condition: Stable Scripts Colchicine (Colchicine) 0.6 Mg Capsule 1 CAP PO BID for 30 Days, #60 CAP 0 Refills Prov: ÁLVARO POLANCO MD 06/09/25 Additional Instructions: Patient and the caregiver have been informed of all the diagnostic tests and the imaging conducted during the today's visit to the emergency room and has verbalized understanding of the results I have personally reviewed and interpreted all diagnostic exams performed here in the ER today as well as the vital signs documented by the nursing staff. The patient is now being discharged to home and should follow up with the primary care physician or the specialist as directed by the ER staff. Referrals: DEE MARQUEZ MD (PCP) ÁLVARO POLANCO MD Jun 09, 2025 05:22
[2025-06-09 05:53] LABS: IMMATURE GRANULOCYTE ABSOLUTE 0.02 K/uL (0-1); NUCLEATED RED BLOOD CELLS 0.0 % (0.0-0.19); PLATELET COUNT (AUTO) 213 K/uL (130-400); RED BLOOD CELL COUNT(AUTO) 4.96 MIL/uL (4.50-6.20); RED CELL DISTRIBUTION WIDTH 13.0 % (11.0-15.5); WHITE BLOOD COUNT (AUTO) 6.7 K/uL (4.8-10.8)
[2025-06-09 06:05] LABS: CREATININE 1.2 mg/dL (0.5-1.3); GLOMERULAR FILTR. RATE CALC 68.0 mL/min (>90); GLUCOSE,RANDOM 108.0 mg/dL (70-105); SODIUM SERUM 138.0 mmol/L (136-145); UREA NITROGEN, BLOOD 18.0 mg/dL (7-18)
--- NOTE | 2025-06-09 06:51 | HMCIMG ---
EXAM: CR right Knee, 3 View. CLINICAL HISTORY: swelling and pain COMPARISON: None provided. FINDINGS: BONES: No acute fracture or aggressive appearing osseous lesion. JOINTS: The joint spaces show no significant degenerative disease. There is no joint effusion appreciated. SOFT TISSUES: The soft tissues are unremarkable. IMPRESSION: No acute osseous pathology evident. /[place]
[2025-06-09 06:53] VITALS: BP 108/74; PULSE 54; RESP 18; TEMP 96.6; O2SAT 97
[2025-06-09] MEDS ORDERED: COLC0.6C3 PO (07:07)
--- NOTE | 2025-06-09 07:54 | NUR ---
KNEE IMMOBILIZER TO RT KNEE APPLIED, PT TOLERATED WELL. CRUTCHES WITH CRUTCH WALKING PROVIDED, PT VERBALIZED UNDERSTANDING.
== END 2025-06-09 08:25 | disposition home or self-care (01) ==
LOC: EDH 05:03
DX: M10.061 Idiopathic gout, right knee (principal); E11.9 Type 2 diabetes mellitus without complications; I10 Essential (primary) hypertension; G47.33 Obstructive sleep apnea (adult) (pediatric); Z88.0 Allergy status to penicillin; Z79.899 Other long term (current) drug therapy; Z98.890 Other specified postprocedural states
CPT/HCPCS: 99284; 96374; 29505; 84550; 80048; 85025; 36415; 73562; J1885